=== PATIENT | female | born 1965 | race African-American/Black ===

== ENCOUNTER 2021-09-12 10:04 | Inpatient (IN) | payer BC ==
[~2021-09-12] VITALS: Ht 180.3 cm; Wt 101.6 kg
[~2021-09-12 10:04] MED LIST: HYDR-3164 PO
[2021-09-12] MEDS ORDERED: IV NORMAL SALINE 1000ML BAG 1,000 ML IV ONE (10:30)
[2021-09-12 11:01] LABS: BASO # 0.1 x10^3/uL (0.0-0.2); BASO % 1 % (0-3); EOS # 0.1 x10^3/uL (0.0-0.7); EOS % 1 % (0-3); HEMATOCRIT 31.3 % (36.0-47.0); HEMOGLOBIN 10.2 g/dL (12.0-15.5); LYMPH # 2.8 x10^3/uL (1.0-4.8); LYMPH % 22 % (24-48); MEAN CORPUSCULAR HEMOGLOBIN 32 pg (25-35); MEAN CORPUSCULAR HGB CONC 33 g/dL (31-37); MEAN CORPUSCULAR VOLUME 96 fL (79-100); MONO # 0.8 x10^3/uL (0.0-1.1); MONO % 7 % (0-9); NEUT # 8.7 x10^3/uL (1.8-7.7); NEUT % 70 % (31-73); PLATELET COUNT 365 x10^3/uL (140-400); RED BLOOD COUNT 3.24 x10^6/uL (3.50-5.40); RED CELL DISTRIBUTION WIDTH 13.1 % (11.5-14.5); WHITE BLOOD COUNT 12.4 x10^3/uL (4.0-11.0)
[2021-09-12 11:09] LABS: CALCIUM 8.8 mg/dL (8.5-10.1); CREATININE 0.9 mg/dL (0.6-1.0); GFR 77.8; POTASSIUM 4.7 mmol/L (3.5-5.1)
[2021-09-12 11:15] LABS: ALBUMIN 2.7 g/dL (3.4-5.0); ALBUMIN/GLOBULIN RATIO 0.8 (1.0-1.7); TOTAL BILIRUBIN 0.4 mg/dL (0.2-1.0); TOTAL PROTEIN 6.3 g/dL (6.4-8.2)
[2021-09-12 11:16] LABS: PROTHROMBIN TIME PATIENT 15.4 SEC (11.7-14.0)
[2021-09-12] MEDS ORDERED: IOHEXOL 350 MG/ML 100 ML VIAL. IV ONE (11:30)
[2021-09-12] MEDS ORDERED: CONTRAST GIVEN. MC PRN (11:30)
--- NOTE | 2021-09-12 12:16 | RAD ---
PQRS Compliance Statement: One or more of the following individualized dose reduction techniques were utilized for this examinat ion: 1. Automated exposure control 2. Adjustment of the mA and/or kV according to patient size 3. Use of iterative reconstruction technique Exam performed: CT angiogram abdomen and pelvis without and with contrast HISTORY: GI bleed. DATE OF SERVICE: 09/12/2021. COMPARISON: None available TECHNIQUE: Contiguous helical acquisitions are obtained through the abdomen and pelvis without IV con trast. Patient is then injected with 90 cc of Omnipaque 350 sagittal and coronal MIP images are obtai gia and reviewed. FINDINGS: Vascular findings: The aorta is normal in caliber without aneurysm. Normal origins of the celiac axis, superior mesenter ic, single bilateral renal and inferior mesenteric arteries is seen. Normal aortic bifurcation is seen into bilateral common iliac arteries which bifurcate into internal and external iliac artery. No evidence of aneurysm or dissection seen. No contrast extravasation is i dentified. The delayed images demonstrate no evidence of delayed hemorrhage. Nonvascular findings: The noncontrast enhanced images demonstrate no abnormal calcification. Postoperative changes are seen in the stomach. There are surgical sutures in relation to the small bowel in the left mid to lower a bdomen. Pelvic phleboliths. The liver, spleen, pancreas appear normal. Gallbladder is distended. Both adrenal glands and bilatera l kidneys are normal in size with symmetric excretion of contrast via both kidneys. No hydronephrosis or nephrolithiasis seen. Small and large bowel loops are nondilated and unremarkable. The urinary bl adder is partially decompressed. Probable hysterectomy. No adnexal masses seen. There are spondylotic changes involving the lumbar spine with degenerative disc disease at L2-3 level. IMPRESSION: No definite vascular abnormality seen. No evidence of aneurysm, dissection of contrast extravasation seen. No acute intra-abdominal or pelvic process seen. Degenerative disc disease L2/3 level. Electronically signed by: Mariah Lyon MD (09/12/2021 12:13 PM) [facility]
[2021-09-12 12:32] LABS: HYALINE CASTS, URINE OCCASIONAL /HPF
[2021-09-12 12:33] LABS: BACTERIA,URINE 0 /HPF (0-FEW); RBC,URINE 0 /HPF (0-2)
--- NOTE | 2021-09-12 13:08 | PHYS DOC ---
Past Medical History Past Medical History: Cancer, Hypertension, Other Additional Past Medical Histor: cancer(dfsb,2004) Past Surgical History: No Surgical History Additional Past Surgical Histo: scar tissue removal Smoking Status: Never Smoker Alcohol Use: None Drug Use: None General Adult EDM: Chief Complaint: GI PROBLEM HPI: HPI: Patient is a 56 year old female who presents with periumbilical abdominal pain with 3 large bloody bowel movements this morning. Patient was seen last week in the urgent care, she had a white count of 13.9 and hemoglobin of 14 at that time. She was given antibiotics for some sort of infection according to the patient, also her D-dimer was elevated, she had a CT angio of the chest which did not reveal a pulmonary embolus. She did not have imaging of her abdomen. She presents today hemodynamically stable, however she states that she is symptomatic. She states that she is lightheaded, she feels a bit short of breath, and she feels fatigued very quickly. Otherwise she is doing well. Review of Systems: Review of Systems: Constitutional: Denies fever or chills. [] Eyes: Denies change in visual acuity. [] HENT: Denies nasal congestion or sore throat. [] Respiratory: Denies cough or shortness of breath. [] Cardiovascular: Denies chest pain or edema. [] GI: Positive abdominal pain, no nausea, vomiting, positive bloody stools no constipation or diarrhea. [] : Denies dysuria. [] Musculoskeletal: Denies back pain or joint pain. [] Integument: Denies rash. [] Neurologic: Denies headache, focal weakness or sensory changes. [] Endocrine: Denies polyuria or polydipsia. [] Lymphatic: Denies swollen glands. [] Psychiatric: Denies depression or anxiety. [] Heart Score: C/O Chest Pain: No Risk Factors: Risk Factors: DM, Current or recent (<one month) smoker, HTN, HLP, family history of CAD, obesity. Risk Scores: Score 0 - 3: 2.5% MACE over next 6 weeks - Discharge Home Score 4 - 6: 20.3% MACE over next 6 weeks - Admit for Clinical Observation Score 7 - 10: 72.7% MACE over next 6 weeks - Early Invasive Strategies Current Medications: Current Medications Medications (Trade) Dose Ordered Sig/Ratna Start Time Stop Time Status Last Admin Dose Admin Info (CONTRAST GIVEN -- Rx MONITORING) 1 each PRN DAILY PRN 09/12/21 11:30 09/14/21 11:29 Iohexol (Omnipaque 350 Mg/ml) 100 ml 1X ONCE 09/12/21 11:30 09/12/21 11:31 DC 09/12/21 11:34 100 ML Pantoprazole Sodium 80 mg/ Sodium Chloride 100 ml @ 10 mls/hr Q10H 09/12/21 13:00 Sodium Chloride 1,000 ml @ 1,000 mls/hr 1X ONCE 09/12/21 10:30 09/12/21 11:29 DC 09/12/21 10:55 1,000 MLS/HR Allergies: Allergies: Allergies Coded Allergies Type Severity Reaction Last Updated Verified No Known Drug Allergies 06/05/13 No Physical Exam: PE: Constitutional: Well developed, well nourished, no acute distress, non-toxic appearance. [] HENT: Normocephalic, atraumatic, bilateral external ears normal, oropharynx mois t, no oral exudates, nose normal. [] Eyes: PERRLA, EOMI, conjunctiva normal, no discharge. [] Neck: Normal range of motion, no tenderness, supple, no stridor. [] Cardiovascular:Heart rate regular rhythm, no murmur [] Lungs & Thorax: Bilateral breath sounds clear to auscultation [] Abdomen: Bowel sounds normal, soft, minimal epigastric and periumbilical tenderness, no masses, no pulsatile masses. [] Skin: Warm, dry, no erythema, no rash. [] Back: No tenderness, no CVA tenderness. [] Extremities: No tenderness, no cyanosis, no clubbing, ROM intact, no edema. [] Neurologic: Alert and oriented X 3, normal motor function, normal sensory function, no focal deficits noted. [] Psychologic: Affect normal, judgement normal, mood normal. [] Current Patient Data: Labs: Laboratory Tests Test 09/12/21 10:40 09/12/21 11:45 White Blood Count 12.4 x10^3/uL (4.0-11.0) H Red Blood Count 3.24 x10^6/uL (3.50-5.40) L Hemoglobin 10.2 g/dL (12.0-15.5) L Hematocrit 31.3 % (36.0-47.0) L Mean Corpuscular Volume 96 fL (79-100) Mean Corpuscular Hemoglobin 32 pg (25-35) Mean Corpuscular Hemoglobin Concent 33 g/dL (31-37) Red Cell Distribution Width 13.1 % (11.5-14.5) Platelet Count 365 x10^3/uL (140-400) Neutrophils (%) (Auto) 70 % (31-73) Lymphocytes (%) (Auto) 22 % (24-48) L Monocytes (%) (Auto) 7 % (0-9) Eosinophils (%) (Auto) 1 % (0-3) Basophils (%) (Auto) 1 % (0-3) Neutrophils # (Auto) 8.7 x10^3/uL (1.8-7.7) H Lymphocytes # (Auto) 2.8 x10^3/uL (1.0-4.8) Monocytes # (Auto) 0.8 x10^3/uL (0.0-1.1) Eosinophils # (Auto) 0.1 x10^3/uL (0.0-0.7) Basophils # (Auto) 0.1 x10^3/uL (0.0-0.2) Prothrombin Time 15.4 SEC (11.7-14.0) H Prothrombin Time INR 1.3 (0.8-1.1) H Activated Partial Thromboplast Time 35 SEC (24-38) Sodium Level 140 mmol/L (136-145) Potassium Level 4.7 mmol/L (3.5-5.1) Chloride Level 105 mmol/L (98-107) Carbon Dioxide Level 26 mmol/L (21-32) Anion Gap 9 (6-14) Blood Urea Nitrogen 24 mg/dL (7-20) H Creatinine 0.9 mg/dL (0.6-1.0) Estimated GFR (Cockcroft-Gault) 77.8 BUN/Creatinine Ratio 27 (6-20) H Glucose Level 119 mg/dL (70-99) H Lactic Acid Level 1.7 mmol/L (0.4-2.0) Calcium Level 8.8 mg/dL (8.5-10.1) Total Bilirubin 0.4 mg/dL (0.2-1.0) Aspartate Amino Transferase (AST) 29 U/L (15-37) Alanine Aminotransferase (ALT) 37 U/L (14-59) Alkaline Phosphatase 129 U/L (46-116) H Total Protein 6.3 g/dL (6.4-8.2) L Albumin 2.7 g/dL (3.4-5.0) L Albumin/Globulin Ratio 0.8 (1.0-1.7) L Urine Collection Type Unknown Urine Color (Auto) Light yellow Urine Turbidity Clear Urine pH (Auto) 6.5 (<5.0-8.0) Urine Specific War 1.043 (1.000-1.030) Urine Protein (Auto) Negative mg/dL (Negative) Urine Glucose (Auto)(UA) Negative mg/dL (Negative) Urine Ketones (Auto) Negative mg/dL (Negative) Urine Blood (Auto) Small (Negative) Urine Nitrite (Auto) Negative (Negative) Urine Bilirubin (Auto) Negative (Negative) Urine Urobilinogen (Auto) Normal mg/dL (Normal) Urine Leukocyte Esterase (Auto) Negative (Negative) Urine RBC 0 /HPF (0-2) Urine WBC 1-4 /HPF (0-4) Urine Squamous Epithelial Cells Few /LPF Urine Bacteria 0 /HPF (0-FEW) Urine Hyaline Casts Occasional /HPF Urine Mucus Mod /LPF Laboratory Tests 09/12/21 10:40 Laboratory Tests 09/12/21 10:40 Vital Signs: Vital Signs Date Time Temp Pulse Resp B/P (MAP) Pulse Ox O2 Delivery O2 Flow Rate FiO2 09/12/21 12:40 89 20 110/74 (86) 98 Room Air 09/12/21 10:21 97.7 97.7 EKG: EKG: [] Radiology/Procedures: Radiology/Procedures: CT scan no acute intra-abdominal process Impression: 56-year-old female with acute GI bleed. Hemoglobin dropped from 14 to 10.2 Course & Med Decision Making: Course & Med Decision Making Pertinent Labs and Imaging studies reviewed. (See chart for details) 56-year-old female with acute blood loss anemia secondary to GI bleed. I spoke to gastroenterology on-call who requested a PPI drip and admission for further monitoring, they will be in consultation. Spoke to hospitalist, Dr. Barragan, who accepts the patient for admission. Patient is currently stable, hemodynamically stable, patient will be admitted for further monitoring. Dragon Disclaimer: Dragon Disclaimer: This electronic medical record was generated, in whole or in part, using a voice recognition dictation system. Departure Departure Referrals: SHARON WILHELM Jr, MD (PCP) CARMEN DAVIS MD Sep 12, 2021 13:08
[2021-09-12] MEDS: PANTOPRAZOLE SODIUM IV DRIP 80 MG in IV NORMAL SALINE 100ML 100 ML IV SCH ×2 (13:23→23:13)
--- NOTE | 2021-09-12 14:10 | NUR ---
Received patient from ED by bed, stable, with ongoing Pantoprazole drip at ordered rate. 1500h, patient ambulated to bathroom, stable gait noted 1600h- Dr. Gordon, GI doctor called, told that she'll see patient annie, patient may have clear liquid diet for now until seen.
[2021-09-12 14:20] VITALS: BP 99/66
[2021-09-12] MEDS ORDERED: ZOLPIDEM 5 MG TABLET. PO PRN (15:15)
[2021-09-12] MEDS ORDERED: LORazepam 0.5 MG TABLET PO PRN (15:15)
[2021-09-12] MEDS ORDERED: SENNOSIDES 8.6 MG TABLET PO PRN (15:15)
[2021-09-12] MEDS ORDERED: DEXTROSE 50% 25 GM / 50ML DISP.SYRIN. IV PRN (15:15)
[2021-09-12] MEDS ORDERED: DOCUSATE SODIUM 100 MG CAPSULE. PO PRN (15:15)
[2021-09-12] MEDS ORDERED: diphenhydrAMINE HCL 25 MG CAPSULE PO PRN ×2 (15:15)
[2021-09-12] MEDS ORDERED: diphenhydrAMINE 50 MG/ML VIAL IVP PRN (15:15)
[2021-09-12] MEDS ORDERED: PROCHLORPERAZINE 10 MG/2 ML VIAL. IV PRN (15:15)
--- NOTE | 2021-09-12 15:19 | PDOC1 ---
History and Physical Date of Service: DOS: DATE: 09/12/21 TIME: 15:06 Chief Complaint: Chief Complain: Lower GI bleed History of Present Illness: HPI: 56-year-old female who presents with 3 large bloody bowel movements this morning. She does have a history of hemorrhoids. She was seen last week at an urgent care where her hemoglobin was 14 at the time. She was given antibiotics for what sounds like a UTI. She also was evaluated by her PCP in which her D- dimer was elevated and she underwent a CT angio of the chest which was negative for pulmonary embolus. She does endorse some suprapubic pain and some shortness of breath. Positive for fatigue as well. Denies any chest pain, fevers, nausea or vomiting, dysuria or syncope. No palpitations. Past Medical/Surgical History: PMH/PSH: Past Medical History: Hypertension, dermatofibrosarcoma 2005 Past Surgical History: TAHBSO in 2018, [place]-en-Y gastric bypass in 2019, colonoscopy more than 10 years ago Allergies: Allergies: Coded Allergies: No Known Drug Allergies (Unverified , 06/05/13) Family History: Family History: Reviewed with no relative findings in the chart Social History: Social History: Smoking Status: Never Smoker Alcohol Use: None Drug Use: None Current Medications: Current Medications Current Medications Sodium Chloride 1,000 ml @ 1,000 mls/hr 1X ONCE IV Last administered on 09/12/21at 10:55; Start 09/12/21 at 10:30; Stop 09/12/21 at 11:29; Status DC Iohexol (Omnipaque 350 Mg/ml) 100 ml 1X ONCE IV Last administered on 09/12/21at 11:34; Start 09/12/21 at 11:30; Stop 09/12/21 at 11:31; Status DC Info (CONTRAST GIVEN -- Rx MONITORING) 1 each PRN DAILY PRN MC SEE COMMENTS; Start 09/12/21 at 11:30; Stop 09/14/21 at 11:29 Pantoprazole Sodium 80 mg/ Sodium Chloride 100 ml @ 10 mls/hr Q10H IV Last administered on 09/12/21at 13:23; Start 09/12/21 at 13:00 Active Scripts Active [place] 5-325 Tablet (Hydrocodone Bit/Acetaminophen) 1 Each Tablet 1 Each PO Q4HRS PRN ROS: Review of Systems Review of System REVIEW OF SYSTEMS: GENERAL: Denies weakness SKIN: No bruising, hair changes or rashes. EYES: No blurred, double or loss of vision. NOSE AND THROAT: No history of nosebleeds, hoarseness or sore throat. HEART: No history of palpitations, chest pain or shortness of breath on exertion. LUNGS: Denies cough, hemoptysis, wheezing or shortness of breath. GASTROINTESTINAL: Bloody bowel movements GENITOURINARY: No history of frequency, urgency, hesitancy or nocturia. NEUROLOGIC: Denies history of numbness, tingling, or tremor. PSYCHIATRIC: No history of panic, anxiety or depression. ENDOCRINE: No history of heat or cold intolerance, polyuria or polydipsia. EXTREMITIES: Denies joint pain, pain on walking or stiffness. Physical Exam: Vital Signs: Vital Signs Date Time Temp Pulse Resp B/P (MAP) Pulse Ox O2 Delivery O2 Flow Rate FiO2 09/12/21 14:20 98.1 61 19 99/66 (77) 98 Room Air 98.1 Physcial Exam: General: Well developed, well nourished, no acute distress, well appearing HEENT: Pupils equally round and reactive to light, EOMI, no discharge, normal conjunctiva Neck: Supple, no nuchal rigidity, no JVD, trachea midline, no tenderness Cardiac: RRR, no murmurs, no gallops, no rubs Chest/Lungs: CTAB, no wheeze, no rhonchi, no crackles Abdomen: soft, non-distended, no guarding, no peritoneal signs, mildly tender on palpation of the lower abdominal area Back: No tenderness Extremities: no edema, pulses intact, non-tender,capillary refill <3 sec bilateral upper and lower extremities, Neuro: Alert and oriented x 4, no focal deficits, normal speech Labs: Labs: Laboratory Tests Test 09/12/21 10:40 09/12/21 11:45 White Blood Count 12.4 x10^3/uL (4.0-11.0) Red Blood Count 3.24 x10^6/uL (3.50-5.40) Hemoglobin 10.2 g/dL (12.0-15.5) Hematocrit 31.3 % (36.0-47.0) Mean Corpuscular Volume 96 fL (79-100) Mean Corpuscular Hemoglobin 32 pg (25-35) Mean Corpuscular Hemoglobin Concent 33 g/dL (31-37) Red Cell Distribution Width 13.1 % (11.5-14.5) Platelet Count 365 x10^3/uL (140-400) Neutrophils (%) (Auto) 70 % (31-73) Lymphocytes (%) (Auto) 22 % (24-48) Monocytes (%) (Auto) 7 % (0-9) Eosinophils (%) (Auto) 1 % (0-3) Basophils (%) (Auto) 1 % (0-3) Neutrophils # (Auto) 8.7 x10^3/uL (1.8-7.7) Lymphocytes # (Auto) 2.8 x10^3/uL (1.0-4.8) Monocytes # (Auto) 0.8 x10^3/uL (0.0-1.1) Eosinophils # (Auto) 0.1 x10^3/uL (0.0-0.7) Basophils # (Auto) 0.1 x10^3/uL (0.0-0.2) Prothrombin Time 15.4 SEC (11.7-14.0) Prothromb Time International Ratio 1.3 (0.8-1.1) Activated Partial Thromboplast Time 35 SEC (24-38) Sodium Level 140 mmol/L (136-145) Potassium Level 4.7 mmol/L (3.5-5.1) Chloride Level 105 mmol/L (98-107) Carbon Dioxide Level 26 mmol/L (21-32) Anion Gap 9 (6-14) Blood Urea Nitrogen 24 mg/dL (7-20) Creatinine 0.9 mg/dL (0.6-1.0) Estimated GFR (Cockcroft-Gault) 77.8 BUN/Creatinine Ratio 27 (6-20) Glucose Level 119 mg/dL (70-99) Lactic Acid Level 1.7 mmol/L (0.4-2.0) Calcium Level 8.8 mg/dL (8.5-10.1) Total Bilirubin 0.4 mg/dL (0.2-1.0) Aspartate Amino Transf (AST/SGOT) 29 U/L (15-37) Alanine Aminotransferase (ALT/SGPT) 37 U/L (14-59) Alkaline Phosphatase 129 U/L (46-116) Total Protein 6.3 g/dL (6.4-8.2) Albumin 2.7 g/dL (3.4-5.0) Albumin/Globulin Ratio 0.8 (1.0-1.7) Urine Collection Type Unknown Urine Color (Auto) Light yellow Urine Turbidity Clear Urine pH (Auto) 6.5 (<5.0-8.0) Urine Specific Diagonal 1.043 (1.000-1.030) Urine Protein (Auto) Negative mg/dL (Negative) Urine Glucose (Auto)(UA) Negative mg/dL (Negative) Urine Ketones (Auto) Negative mg/dL (Negative) Urine Blood (Auto) Small (Negative) Urine Nitrite (Auto) Negative (Negative) Urine Bilirubin (Auto) Negative (Negative) Urine Urobilinogen (Auto) Normal mg/dL (Normal) Urine Leukocyte Esterase (Auto) Negative (Negative) Urine RBC 0 /HPF (0-2) Urine WBC 1-4 /HPF (0-4) Urine Squamous Epithelial Cells Few /LPF Urine Bacteria 0 /HPF (0-FEW) Urine Hyaline Casts Occasional /HPF Urine Mucus Mod /LPF Laboratory Tests Test 09/12/21 10:40 09/12/21 11:45 White Blood Count 12.4 x10^3/uL (4.0-11.0) Red Blood Count 3.24 x10^6/uL (3.50-5.40) Hemoglobin 10.2 g/dL (12.0-15.5) Hematocrit 31.3 % (36.0-47.0) Mean Corpuscular Volume 96 fL (79-100) Mean Corpuscular Hemoglobin 32 pg (25-35) Mean Corpuscular Hemoglobin Concent 33 g/dL (31-37) Red Cell Distribution Width 13.1 % (11.5-14.5) Platelet Count 365 x10^3/uL (140-400) Neutrophils (%) (Auto) 70 % (31-73) Lymphocytes (%) (Auto) 22 % (24-48) Monocytes (%) (Auto) 7 % (0-9) Eosinophils (%) (Auto) 1 % (0-3) Basophils (%) (Auto) 1 % (0-3) Neutrophils # (Auto) 8.7 x10^3/uL (1.8-7.7) Lymphocytes # (Auto) 2.8 x10^3/uL (1.0-4.8) Monocytes # (Auto) 0.8 x10^3/uL (0.0-1.1) Eosinophils # (Auto) 0.1 x10^3/uL (0.0-0.7) Basophils # (Auto) 0.1 x10^3/uL (0.0-0.2) Prothrombin Time 15.4 SEC (11.7-14.0) Prothromb Time International Ratio 1.3 (0.8-1.1) Activated Partial Thromboplast Time 35 SEC (24-38) Sodium Level 140 mmol/L (136-145) Potassium Level 4.7 mmol/L (3.5-5.1) Chloride Level 105 mmol/L (98-107) Carbon Dioxide Level 26 mmol/L (21-32) Anion Gap 9 (6-14) Blood Urea Nitrogen 24 mg/dL (7-20) Creatinine 0.9 mg/dL (0.6-1.0) Estimated GFR (Cockcroft-Gault) 77.8 BUN/Creatinine Ratio 27 (6-20) Glucose Level 119 mg/dL (70-99) Lactic Acid Level 1.7 mmol/L (0.4-2.0) Calcium Level 8.8 mg/dL (8.5-10.1) Total Bilirubin 0.4 mg/dL (0.2-1.0) Aspartate Amino Transf (AST/SGOT) 29 U/L (15-37) Alanine Aminotransferase (ALT/SGPT) 37 U/L (14-59) Alkaline Phosphatase 129 U/L (46-116) Total Protein 6.3 g/dL (6.4-8.2) Albumin 2.7 g/dL (3.4-5.0) Albumin/Globulin Ratio 0.8 (1.0-1.7) Urine Collection Type Unknown Urine Color (Auto) Light yellow Urine Turbidity Clear Urine pH (Auto) 6.5 (<5.0-8.0) Urine Specific Diagonal 1.043 (1.000-1.030) Urine Protein (Auto) Negative mg/dL (Negative) Urine Glucose (Auto)(UA) Negative mg/dL (Negative) Urine Ketones (Auto) Negative mg/dL (Negative) Urine Blood (Auto) Small (Negative) Urine Nitrite (Auto) Negative (Negative) Urine Bilirubin (Auto) Negative (Negative) Urine Urobilinogen (Auto) Normal mg/dL (Normal) Urine Leukocyte Esterase (Auto) Negative (Negative) Urine RBC 0 /HPF (0-2) Urine WBC 1-4 /HPF (0-4) Urine Squamous Epithelial Cells Few /LPF Urine Bacteria 0 /HPF (0-FEW) Urine Hyaline Casts Occasional /HPF Urine Mucus Mod /LPF Images: Images PROCEDURE: CT ANGIOGRAPHY ABD AND PELVIS PQRS Compliance Statement: One or more of the following individualized dose reduction techniques were utilized for this examination: 1. Automated exposure control 2. Adjustment of the mA and/or kV according to patient size 3. Use of iterative reconstruction technique Exam performed: CT angiogram abdomen and pelvis without and with contrast HISTORY: GI bleed. DATE OF SERVICE: 09/12/2021. COMPARISON: None available TECHNIQUE: Contiguous helical acquisitions are obtained through the abdomen and pelvis without IV contrast. Patient is then injected with 90 cc of Omnipaque 350 sagittal and coronal MIP images are obtained and reviewed. FINDINGS: Vascular findings: The aorta is normal in caliber without aneurysm. Normal origins of the celiac axis, superior mesenteric, single bilateral renal and inferior mesenteric arteries is seen. Normal aortic bifurcation is seen into bilateral common iliac arteries which bifurcate into internal and external iliac artery. No evidence of aneurysm or dissection seen. No contrast extravasation is identified. The delayed images demonstrate no evidence of delayed hemorrhage. Nonvascular findings: The noncontrast enhanced images demonstrate no abnormal calcification. Postoperative changes are seen in the stomach. There are surgical sutures in relation to the small bowel in the left mid to lower abdomen. Pelvic phleboliths. The liver, spleen, pancreas appear normal. Gallbladder is distended. Both adrenal glands and bilateral kidneys are normal in size with symmetric excretion of contrast via both kidneys. No hydronephrosis or nephrolithiasis seen. Small and large bowel loops are nondilated and unremarkable. The urinary bladder is partially decompressed. Probable hysterectomy. No adnexal masses seen. There are spondylotic changes involving the lumbar spine with degenerative disc disease at L2-3 level. IMPRESSION: No definite vascular abnormality seen. No evidence of aneurysm, dissection of contrast extravasation seen. No acute intra-abdominal or pelvic process seen. Degenerative disc disease L2/3 level. Assessment/Plan Assessment/Plan Acute lower GIB Anemia secondary to acute blood loss Prerenal azotemia History of gastric bypass History of colonic polyps History of dermatofibrosarcoma Admit to hospitalist service for further management GI consult Continue PPI drip Trend hemoglobin Strict I's/O and monitor urine output Continue IV fluids Pending B12 levels SCD and ambulation for DVT prophylaxis PPI GI prophylaxis ADA diet CODE STATUS full Discussed with RN and SW Disposition inpatient management as above DPOA: Justifications for Admission Other Justification SANJEEV FELIPE MD Sep 12, 2021 15:19
[2021-09-12] MEDS: IV NORMAL SALINE 1000ML BAG 1,000 ML IV SCH ×2 (15:26→23:14)
[2021-09-12] MEDS ORDERED: CALC-313 PO (16:14)
[2021-09-12] MEDS ORDERED: MULT1CAP33 PO (16:14)
[2021-09-12] MEDS ORDERED: CIPR250T PO (16:14)
[2021-09-12 19:00] VITALS: BP 96/57
[2021-09-13] VITALS (11 sets, daily range): BP systolic 98–120; BP diastolic 48–78
[2021-09-13 07:38] LABS: BASO % 1 % (0-3); EOS # 0.1 x10^3/uL (0.0-0.7); EOS % 2 % (0-3); HEMATOCRIT 20.1 % (36.0-47.0); LYMPH # 2.2 x10^3/uL (1.0-4.8); LYMPH % 31 % (24-48); MEAN CORPUSCULAR HEMOGLOBIN 32 pg (25-35); MEAN CORPUSCULAR HGB CONC 34 g/dL (31-37); MEAN CORPUSCULAR VOLUME 95 fL (79-100); MONO # 0.4 x10^3/uL (0.0-1.1); MONO % 6 % (0-9); NEUT # 4.3 x10^3/uL (1.8-7.7); NEUT % 61 % (31-73); PLATELET COUNT 300 x10^3/uL (140-400); RED BLOOD COUNT 2.11 x10^6/uL (3.50-5.40); RED CELL DISTRIBUTION WIDTH 12.9 % (11.5-14.5); WHITE BLOOD COUNT 7.1 x10^3/uL (4.0-11.0)
[2021-09-13 07:42] LABS: HEMOGLOBIN 6.8 g/dL (12.0-15.5)
[2021-09-13 07:52] LABS: CALCIUM 8.1 mg/dL (8.5-10.1); CREATININE 0.9 mg/dL (0.6-1.0); GFR 77.8; MAGNESIUM 2.1 mg/dL (1.8-2.4); PHOSPHORUS 4.1 mg/dL (2.6-4.7); POTASSIUM 4.1 mmol/L (3.5-5.1)
[2021-09-13 08:07] LABS: BACTERIA,URINE 0 /HPF (0-FEW); RBC,URINE 0 /HPF (0-2); WBC,URINE 0 /HPF (0-4)
[2021-09-13] MEDS: PANTOPRAZOLE SODIUM IV DRIP 80 MG in IV NORMAL SALINE 100ML 100 ML IV SCH ×2 (09:47→23:02)
[2021-09-13] MEDS: ONDANSETRON PF 4 MG/2 ML VIAL. IVP PRN ×2 (09:52→19:42)
--- NOTE | 2021-09-13 10:41 | PDOC2 ---
GI CONSULT Reason For Consult: anemia/hematochezia HPI: HPI: 56 year old female with PMH RYGB with came in yesterday with 3 large bloody bowel movements. She does have a history of hemorrhoids. She was seen at an urgent care on and was told to come to the ER. She was seen by her PCP on Tuesday and treated for a UTI with antibiotics. Her Hgb was 14 at that times ON Admit, Hgb was 10. CT A/P was unremarkable. Hgb was 6.8 this am, and she reports feeling like there is needles in her abdomen. She admit sto taking multiple Ibuprofen and tylenol for the pain from her UTI and a headache. She also was evaluated by her PCP in which her D-dimer was elevated and she underwent a CT angio of the chest which was negative for pulmonary embolus. She does endorse some suprapubic pain and some shortness of breath. She states that she had an EGD on college that was unremarkble and had a colonoscopy 10 years ago that demonstrated polyps. She denies history of diverticulosis PMH: PMH: Past Medical/Surgical History: PMH/PSH: Past Medical History: Hypertension, dermatofibrosarcoma 2005 Past Surgical History: TAHBSO in 2018, Ever[place]-en-Y gastric bypass in 2019, colonoscopy more than 10 years ago Allergies: Allergies: Coded Allergies: No Known Drug Allergies (Unverified , 06/05/13) Family History: Family History: Reviewed with no relative findings in the chart Social History: Social History: Smoking Status: Never Smoker Alcohol Use: None Drug Use: None Current Medications: Current Medications Current Medications Sodium Chloride 1,000 ml @ 1,000 mls/hr 1X ONCE IV Last administered on 09/12/21at 10:55; Start 09/12/21 at 10:30; Stop 09/12/21 at 11:29; Status DC Iohexol (Omnipaque 350 Mg/ml) 100 ml 1X ONCE IV Last administered on 09/12/21at 11:34; Start 09/12/21 at 11:30; Stop 09/12/21 at 11:31; Status DC Info (CONTRAST GIVEN -- Rx MONITORING) 1 each PRN DAILY PRN MC SEE COMMENTS; Start 09/12/21 at 11:30; Stop 09/14/21 at 11:29 Pantoprazole Sodium 80 mg/ Sodium Chloride 100 ml @ 10 mls/hr Q10H IV Last administered on 09/12/21at 13:23; Start 09/12/21 at 13:00 Active Scripts Active [place] 5-325 Tablet (Hydrocodone Bit/Acetaminophen) 1 Each Tablet 1 Each PO Q4HRS PRN FH: Family History: Cancer (Colon cancer in an uncle) Social History: Smoke: No ALCOHOL: none Drugs: None ROS: GENERAL: Denies weakness SKIN: No bruising, hair changes or rashes. EYES: No blurred, double or loss of vision. NOSE AND THROAT: No history of nosebleeds, hoarseness or sore throat. HEART: No history of palpitations, chest pain or shortness of breath on exertion. LUNGS: Denies cough, hemoptysis, wheezing or shortness of breath. NEUROLOGIC: Denies history of numbness, tingling, or tremor. PSYCHIATRIC: No history of panic, anxiety or depression. ENDOCRINE: No history of heat or cold intolerance, polyuria or polydipsia. EXTREMITIES: Denies joint pain, pain on walking or stiffness. VItals: Vitals: Vital Signs Date Time Temp Pulse Resp B/P (MAP) Pulse Ox O2 Delivery O2 Flow Rate FiO2 09/13/21 08:00 Room Air 09/13/21 07:00 98.4 78 16 100/62 (75) 98 98.4 Labs: Labs: Laboratory Tests Test 09/12/21 10:40 09/12/21 11:45 09/13/21 04:53 09/13/21 06:10 White Blood Count 12.4 x10^3/uL (4.0-11.0) 7.1 x10^3/uL (4.0-11.0) Red Blood Count 3.24 x10^6/uL (3.50-5.40) 2.11 x10^6/uL (3.50-5.40) Hemoglobin 10.2 g/dL (12.0-15.5) 6.8 g/dL (12.0-15.5) Hematocrit 31.3 % (36.0-47.0) 20.1 % (36.0-47.0) Mean Corpuscular Volume 96 fL (79-100) 95 fL (79-100) Mean Corpuscular Hemoglobin 32 pg (25-35) 32 pg (25-35) Mean Corpuscular Hemoglobin Concent 33 g/dL (31-37) 34 g/dL (31-37) Red Cell Distribution Width 13.1 % (11.5-14.5) 12.9 % (11.5-14.5) Platelet Count 365 x10^3/uL (140-400) 300 x10^3/uL (140-400) Neutrophils (%) (Auto) 70 % (31-73) 61 % (31-73) Lymphocytes (%) (Auto) 22 % (24-48) 31 % (24-48) Monocytes (%) (Auto) 7 % (0-9) 6 % (0-9) Eosinophils (%) (Auto) 1 % (0-3) 2 % (0-3) Basophils (%) (Auto) 1 % (0-3) 1 % (0-3) Neutrophils # (Auto) 8.7 x10^3/uL (1.8-7.7) 4.3 x10^3/uL (1.8-7.7) Lymphocytes # (Auto) 2.8 x10^3/uL (1.0-4.8) 2.2 x10^3/uL (1.0-4.8) Monocytes # (Auto) 0.8 x10^3/uL (0.0-1.1) 0.4 x10^3/uL (0.0-1.1) Eosinophils # (Auto) 0.1 x10^3/uL (0.0-0.7) 0.1 x10^3/uL (0.0-0.7) Basophils # (Auto) 0.1 x10^3/uL (0.0-0.2) 0.0 x10^3/uL (0.0-0.2) Prothrombin Time 15.4 SEC (11.7-14.0) Prothromb Time International Ratio 1.3 (0.8-1.1) Activated Partial Thromboplast Time 35 SEC (24-38) Sodium Level 140 mmol/L (136-145) 143 mmol/L (136-145) Potassium Level 4.7 mmol/L (3.5-5.1) 4.1 mmol/L (3.5-5.1) Chloride Level 105 mmol/L (98-107) 109 mmol/L (98-107) Carbon Dioxide Level 26 mmol/L (21-32) 28 mmol/L (21-32) Anion Gap 9 (6-14) 6 (6-14) Blood Urea Nitrogen 24 mg/dL (7-20) 13 mg/dL (7-20) Creatinine 0.9 mg/dL (0.6-1.0) 0.9 mg/dL (0.6-1.0) Estimated GFR (Cockcroft-Gault) 77.8 77.8 BUN/Creatinine Ratio 27 (6-20) Glucose Level 119 mg/dL (70-99) 86 mg/dL (70-99) Lactic Acid Level 1.7 mmol/L (0.4-2.0) Calcium Level 8.8 mg/dL (8.5-10.1) 8.1 mg/dL (8.5-10.1) Total Bilirubin 0.4 mg/dL (0.2-1.0) Aspartate Amino Transf (AST/SGOT) 29 U/L (15-37) Alanine Aminotransferase (ALT/SGPT) 37 U/L (14-59) Alkaline Phosphatase 129 U/L (46-116) Total Protein 6.3 g/dL (6.4-8.2) Albumin 2.7 g/dL (3.4-5.0) Albumin/Globulin Ratio 0.8 (1.0-1.7) Urine Collection Type Unknown Unknown Urine Color (Auto) Light yellow Colorless Urine Turbidity Clear Clear Urine pH (Auto) 6.5 (<5.0-8.0) 5.0 (<5.0-8.0) Urine Specific [place] 1.043 (1.000-1.030) 1.007 (1.000-1.030) Urine Protein (Auto) Negative mg/dL (Negative) Negative mg/dL (Negative) Urine Glucose (Auto)(UA) Negative mg/dL (Negative) Negative mg/dL (Negative) Urine Ketones (Auto) Negative mg/dL (Negative) Negative mg/dL (Negative) Urine Blood (Auto) Small (Negative) Negative (Negative) Urine Nitrite (Auto) Negative (Negative) Urine Bilirubin (Auto) Negative (Negative) Negative (Negative) Urine Urobilinogen (Auto) Normal mg/dL (Normal) Normal mg/dL (Normal) Urine Leukocyte Esterase (Auto) Negative (Negative) Negative (Negative) Urine RBC 0 /HPF (0-2) 0 /HPF (0-2) Urine WBC 1-4 /HPF (0-4) 0 /HPF (0-4) Urine Squamous Epithelial Cells Few /LPF Occ /LPF Urine Bacteria 0 /HPF (0-FEW) 0 /HPF (0-FEW) Urine Hyaline Casts Occasional /HPF Urine Mucus Mod /LPF Urine Nitrite Negative (Negative) Phosphorus Level 4.1 mg/dL (2.6-4.7) Magnesium Level 2.1 mg/dL (1.8-2.4) Imaging: Imaging: PATIENT: ZOHRA LEOS ACCOUNT: [id number] : 1965 LOCATION: ER AGE: 56 SEX: F EXAM STATUS: REG ER ORD. PHYSICIAN: CARMEN DAVIS MD REASON: GI bleed PROCEDURE: CT ANGIOGRAPHY ABD AND PELVIS PQRS Compliance Statement: One or more of the following individualized dose reduction techniques were utilized for this examination: 1. Automated exposure control 2. Adjustment of the mA and/or kV according to patient size 3. Use of iterative reconstruction technique Exam performed: CT angiogram abdomen and pelvis without and with contrast HISTORY: GI bleed. DATE OF SERVICE: 09/12/2021. COMPARISON: None available TECHNIQUE: Contiguous helical acquisitions are obtained through the abdomen and pelvis without IV contrast. Patient is then injected with 90 cc of Omnipaque 350 sagittal and coronal MIP images are obtained and reviewed. FINDINGS: Vascular findings: The aorta is normal in caliber without aneurysm. Normal origins of the celiac axis, superior mesenteric, single bilateral renal and inferior mesenteric arteries is seen. Normal aortic bifurcation is seen into bilateral common iliac arteries which bifurcate into internal and external iliac artery. No evidence of aneurysm or dissection seen. No contrast extravasation is identified. The delayed images demonstrate no evidence of delayed hemorrhage. Nonvascular findings: The noncontrast enhanced images demonstrate no abnormal calcification. Postoper ative changes are seen in the stomach. There are surgical sutures in relation to the small bowel in the left mid to lower abdomen. Pelvic phleboliths. The liver, spleen, pancreas appear normal. Gallbladder is distended. Both adrenal glands and bilateral kidneys are normal in size with symmetric excretion of contrast via both kidneys. No hydronephrosis or nephrolithiasis seen. Small and large bowel loops are nondilated and unremarkable. The urinary bladder is partially decompressed. Probable hysterectomy. No adnexal masses seen. There are spondylotic changes involving the lumbar spine with degenerative disc disease at L2-3 level. IMPRESSION: No definite vascular abnormality seen. No evidence of aneurysm, dissection of contrast extravasation seen. No acute intra-abdominal or pelvic process seen. Degenerative disc disease L2/3 level. Electronically signed by: Mariah Lyon MD (09/12/2021 12:13 PM) [facility]ITAL[facility] PE: GEN: NAD HEENT: Atraumatic, PERRLA LUNGS: CTAB HEART: RRR, no murmurs ABD: NABS, S/ND/NT, no masses EXTREMITY: No edema SKIN: No rashes, no jaundice NEURO/PSYCH: A & O 3 A/P: A/P: A 1) Hemotchezia- CTA A/P negative for bleed in ER 2) anemia 3) PMH polyps 4) FMH CRC P 1) PPI gtts 2) PRBCs 3) EGD with concern for ? marginal ulcer bleed 4) If EGD unrevealing, favor prep and colon tomorrow SEA SHELTON MD Sep 13, 2021 10:41
[2021-09-13] MEDS ORDERED: 0.9 % SODIUM CHLORIDE 10 ML DISP.SYRIN. IV PRN (10:45)
[2021-09-13] MEDS: IV NORMAL SALINE 1000ML BAG 1,000 ML IV SCH ×2 (11:15→17:55)
[2021-09-13] MEDS ORDERED: LIDOCAINE 2% PF 5 ML VIAL. ONE (11:40)
[2021-09-13] MEDS ORDERED: PROPOFOL 10 MG/ML (20ML) VIAL. IV ONE ×2 (11:40→12:04)
--- NOTE | 2021-09-13 13:28 | PDOC ---
[employer] PROGRESS NOTE Date of Service DOS: DATE: 09/13/21 TIME: 13:25 Chief Complaint Chief Complaint Acute lower GIB Anemia secondary to acute blood loss Acute cystitis - on ciprofloxacin per PCP Prerenal azotemia History of gastric bypass History of colonic polyps History of dermatofibrosarcoma History of Present Illness History of Present Illness 09/13: Patient seen and evaluated bedside. Hemoglobin this morning 6.8, down from 10.2 on admission. Will give 1 unit PRBC. S/P EGD with findings of small ulcers, but no answer for precipitous drop in hemoglobin. Colon prep tonight; plan is for EGD tomorrow. Patient tells me that she is 5 days into a 10-day course of ciprofloxacin prescribed by her PCP for a severe UTI. Will resume. Discussed with RN. Vitals/I&O Vitals/I&O: Vital Signs Date Time Temp Pulse Resp B/P (MAP) Pulse Ox O2 Delivery O2 Flow Rate FiO2 09/13/21 13:08 99.3 84 17 120/78 99.3 09/13/21 12:08 93 09/13/21 11:58 Room Air I & O 09/12/21 09/12/21 09/13/21 15:00 23:00 07:00 Intake Total 1028 ml 39 ml Output Total 1 ml 1 ml Balance -1 ml 1027 ml 39 ml Physical Exam General: Alert, Oriented X3, Cooperative, No acute distress Heart: Regular rate Lungs: Clear Abdomen: Normal bowel sounds, Soft Extremities: No clubbing, No cyanosis Skin: No rashes Labs Labs: Laboratory Tests Test 09/13/21 04:53 09/13/21 06:10 09/13/21 10:30 Urine Collection Type Unknown Urine Color (Auto) Colorless Urine Turbidity Clear Urine pH (Auto) 5.0 (<5.0-8.0) Urine Specific [place] 1.007 (1.000-1.030) Urine Protein (Auto) Negative mg/dL (Negative) Urine Glucose (Auto)(UA) Negative mg/dL (Negative) Urine Ketones (Auto) Negative mg/dL (Negative) Urine Blood (Auto) Negative (Negative) Urine Nitrite Negative (Negative) Urine Bilirubin (Auto) Negative (Negative) Urine Urobilinogen (Auto) Normal mg/dL (Normal) Urine Leukocyte Esterase (Auto) Negative (Negative) Urine RBC 0 /HPF (0-2) Urine WBC 0 /HPF (0-4) Urine Squamous Epithelial Cells Occ /LPF Urine Bacteria 0 /HPF (0-FEW) White Blood Count 7.1 x10^3/uL (4.0-11.0) Red Blood Count 2.11 x10^6/uL (3.50-5.40) Hemoglobin 6.8 g/dL (12.0-15.5) Hematocrit 20.1 % (36.0-47.0) Mean Corpuscular Volume 95 fL (79-100) Mean Corpuscular Hemoglobin 32 pg (25-35) Mean Corpuscular Hemoglobin Concent 34 g/dL (31-37) Red Cell Distribution Width 12.9 % (11.5-14.5) Platelet Count 300 x10^3/uL (140-400) Neutrophils (%) (Auto) 61 % (31-73) Lymphocytes (%) (Auto) 31 % (24-48) Monocytes (%) (Auto) 6 % (0-9) Eosinophils (%) (Auto) 2 % (0-3) Basophils (%) (Auto) 1 % (0-3) Neutrophils # (Auto) 4.3 x10^3/uL (1.8-7.7) Lymphocytes # (Auto) 2.2 x10^3/uL (1.0-4.8) Monocytes # (Auto) 0.4 x10^3/uL (0.0-1.1) Eosinophils # (Auto) 0.1 x10^3/uL (0.0-0.7) Basophils # (Auto) 0.0 x10^3/uL (0.0-0.2) Sodium Level 143 mmol/L (136-145) Potassium Level 4.1 mmol/L (3.5-5.1) Chloride Level 109 mmol/L (98-107) Carbon Dioxide Level 28 mmol/L (21-32) Anion Gap 6 (6-14) Blood Urea Nitrogen 13 mg/dL (7-20) Creatinine 0.9 mg/dL (0.6-1.0) Estimated GFR (Cockcroft-Gault) 77.8 Glucose Level 86 mg/dL (70-99) Calcium Level 8.1 mg/dL (8.5-10.1) Phosphorus Level 4.1 mg/dL (2.6-4.7) Magnesium Level 2.1 mg/dL (1.8-2.4) SARS-CoV-2 Antigen (Rapid) Negative (NEGATIVE) Assessment and Plan Assessmemt and Plan Problems Medical Problems: (1) Acute blood loss anemia Status: Acute (2) GI bleed Status: Acute Comment Review of Relevant I have reviewed the following items jonas (where applicable) has been applied. Medications: Current Medications Medications (Trade) Dose Ordered Sig/Ratna Route PRN Reason Start Time Stop Time Status Last Admin Dose Admin Ondansetron HCl (Zofran) 4 mg PRN Q6HRS PRN IVP NAUSEA/VOMITING, 1st CHOICE 09/12/21 15:15 09/13/21 09:52 Sodium Chloride 1,000 ml @ 100 mls/hr Q10H IV 09/12/21 15:15 09/12/21 23:14 Justifications for Admission Other Justification RAYMUNDO JAMISON MD Sep 13, 2021 13:28
[2021-09-13 15:50] LABS: HEMATOCRIT 23.8 % (36.0-47.0); HEMOGLOBIN 7.9 g/dL (12.0-15.5); RED BLOOD COUNT 2.55 x10^6/uL (3.50-5.40); RED CELL DISTRIBUTION WIDTH 14.5 % (11.5-14.5); WHITE BLOOD COUNT 7.6 x10^3/uL (4.0-11.0)
[2021-09-13] MEDS ORDERED: PEG 3350/NA SULF,BICARB,CL/KCL 4,000 ML SOLUTION. PO ONE (16:00)
[2021-09-13] MEDS: ACETAMINOPHEN 325 MG TABLET. PO PRN (19:57)
[2021-09-14] VITALS (11 sets, daily range): BP systolic 94–146; BP diastolic 48–74
[2021-09-14 08:50] LABS: BASO % 1 % (0-3); EOS # 0.1 x10^3/uL (0.0-0.7); EOS % 2 % (0-3); HEMATOCRIT 25.3 % (36.0-47.0); HEMOGLOBIN 8.3 g/dL (12.0-15.5); LYMPH % 28 % (24-48); MEAN CORPUSCULAR HEMOGLOBIN 31 pg (25-35); MEAN CORPUSCULAR HGB CONC 33 g/dL (31-37); MEAN CORPUSCULAR VOLUME 94 fL (79-100); MONO # 0.3 x10^3/uL (0.0-1.1); MONO % 5 % (0-9); NEUT # 4.6 x10^3/uL (1.8-7.7); NEUT % 65 % (31-73); RED BLOOD COUNT 2.68 x10^6/uL (3.50-5.40); RED CELL DISTRIBUTION WIDTH 14.4 % (11.5-14.5)
[2021-09-14 08:56] LABS: PLATELET COUNT 286 x10^3/uL (140-400)
[2021-09-14 08:59] LABS: CALCIUM 8.6 mg/dL (8.5-10.1); CREATININE 0.8 mg/dL (0.6-1.0); GFR 89.1; MAGNESIUM 2.1 mg/dL (1.8-2.4); POTASSIUM 4.2 mmol/L (3.5-5.1)
[2021-09-14] MEDS: IV NORMAL SALINE 1000ML BAG 1,000 ML IV SCH ×2 (12:20→22:49)
[2021-09-14] MEDS: PANTOPRAZOLE SODIUM IV DRIP 80 MG in IV NORMAL SALINE 100ML 100 ML IV SCH (13:35)
[2021-09-14] MEDS ORDERED: IV RINGERS,LACTATED 1000ML 1,000 ML IV SCH (14:00)
[2021-09-14] MEDS ORDERED: PROPOFOL 10 MG/ML (20ML) VIAL. IV ONE (15:33)
--- NOTE | 2021-09-14 15:40 | PDOC ---
[employer] PROGRESS NOTE Date of Service DOS: DATE: 09/14/21 TIME: 15:39 Chief Complaint Chief Complaint Acute lower GIB Anemia secondary to acute blood loss Acute cystitis - on ciprofloxacin per PCP Prerenal azotemia History of gastric bypass History of colonic polyps History of dermatofibrosarcoma History of Present Illness History of Present Illness 09/13: Patient seen and evaluated bedside. Hemoglobin this morning 6.8, down from 10.2 on admission. Will give 1 unit PRBC. S/P EGD with findings of small ulcers, but no answer for precipitous drop in hemoglobin. Colon prep tonight; plan is for EGD tomorrow. Patient tells me that she is 5 days into a 10-day course of ciprofloxacin prescribed by her PCP for a severe UTI. Will resume. Discussed with RN. 09/14: Afebrile. No complaints today, denies chest pain or shortness of breath. Hemoglobin 8.3 today; will add oral ferrous sulfate. She will have a colonoscopy today. She will resume her home ciprofloxacin. Barring any significantly abnormal findings on colonoscopy, she may discharge tomorrow. Vitals/I&O Vitals/I&O: Vital Signs Date Time Temp Pulse Resp B/P (MAP) Pulse Ox O2 Delivery O2 Flow Rate FiO2 09/14/21 14:00 97.6 72 20 96 97.6 09/14/21 10:49 116/63 (80) Room Air I & O 09/13/21 09/13/21 09/14/21 15:00 23:00 07:00 Intake Total 882 ml 1100 ml 1000 ml Balance 882 ml 1100 ml 1000 ml Physical Exam General: Alert, Oriented X3, Cooperative, No acute distress Heart: Regular rate Lungs: Clear Abdomen: Normal bowel sounds, Soft Extremities: No clubbing, No cyanosis Skin: No rashes Labs Labs: Laboratory Tests Test 09/13/21 23:45 09/14/21 08:08 Hemoglobin 7.3 g/dL (12.0-15.5) 8.3 g/dL (12.0-15.5) White Blood Count 7.0 x10^3/uL (4.0-11.0) Red Blood Count 2.68 x10^6/uL (3.50-5.40) Hematocrit 25.3 % (36.0-47.0) Mean Corpuscular Volume 94 fL (79-100) Mean Corpuscular Hemoglobin 31 pg (25-35) Mean Corpuscular Hemoglobin Concent 33 g/dL (31-37) Red Cell Distribution Width 14.4 % (11.5-14.5) Platelet Count 286 x10^3/uL (140-400) Neutrophils (%) (Auto) 65 % (31-73) Lymphocytes (%) (Auto) 28 % (24-48) Monocytes (%) (Auto) 5 % (0-9) Eosinophils (%) (Auto) 2 % (0-3) Basophils (%) (Auto) 1 % (0-3) Neutrophils # (Auto) 4.6 x10^3/uL (1.8-7.7) Lymphocytes # (Auto) 2.0 x10^3/uL (1.0-4.8) Monocytes # (Auto) 0.3 x10^3/uL (0.0-1.1) Eosinophils # (Auto) 0.1 x10^3/uL (0.0-0.7) Basophils # (Auto) 0.0 x10^3/uL (0.0-0.2) Sodium Level 143 mmol/L (136-145) Potassium Level 4.2 mmol/L (3.5-5.1) Chloride Level 108 mmol/L (98-107) Carbon Dioxide Level 26 mmol/L (21-32) Anion Gap 9 (6-14) Blood Urea Nitrogen 6 mg/dL (7-20) Creatinine 0.8 mg/dL (0.6-1.0) Estimated GFR (Cockcroft-Gault) 89.1 Glucose Level 81 mg/dL (70-99) Calcium Level 8.6 mg/dL (8.5-10.1) Magnesium Level 2.1 mg/dL (1.8-2.4) Assessment and Plan Assessmemt and Plan Problems Medical Problems: (1) Acute blood loss anemia Status: Acute (2) GI bleed Status: Acute Comment Review of Relevant I have reviewed the following items jonas (where applicable) has been applied. Medications: Current Medications Medications (Trade) Dose Ordered Sig/Ratna Route PRN Reason Start Time Stop Time Status Last Admin Dose Admin Sodium Cl/Sod Bicarb/Potass Cl/ PEG (Golytely) 4,000 ml 1X ONCE PO 09/13/21 16:00 09/13/21 16:01 DC 09/13/21 16:53 Ringer's Solution 1,000 ml @ 75 mls/hr [id number] IV 09/14/21 14:00 09/14/21 13:58 Justifications for Admission Other Justification RAYMUNDO JAMISON MD Sep 14, 2021 15:40
--- NOTE | 2021-09-14 16:13 | PDOC4 ---
PROCEDURE Procedure Colonoscopy Indication: GI bleeding, site uncertain. Meds: per anesthesia Findings: ROSS normal. --'Scope advanced to cecum. Prep adequate. Mucosa normal. Tortuous and angulated, possibly from prior surgery. No diverticular disease, polyps, etc. seen. IH's on retroflex. Flip. well. IMP: IH's, otherwise normal exam. REC: PO PPI BID. Sucralfate qid. Repeat EGD 6-8 weeks re; healing. OK to advance diet. LEISA XIE MD Sep 14, 2021 16:13
[2021-09-14] MEDS: SUCRALFATE 1 GM TABLET. PO SCH ×2 (17:01→20:42)
[2021-09-14] MEDS: PANTOPRAZOLE 40 MG TABLET.DR. PO SCH (17:01)
[2021-09-14] MEDS: CIPROFLOXACIN HCL 250 MG TABLET. PO SCH ×2 (17:01→20:42)
[2021-09-14] MEDS: ONDANSETRON PF 4 MG/2 ML VIAL. IVP PRN (18:32)
[2021-09-15 03:00] VITALS: BP 100/55
[2021-09-15 06:14] LABS: BASO % 0 % (0-3); EOS # 0.1 x10^3/uL (0.0-0.7); EOS % 2 % (0-3); HEMATOCRIT 21.9 % (36.0-47.0); HEMOGLOBIN 7.4 g/dL (12.0-15.5); LYMPH # 1.8 x10^3/uL (1.0-4.8); LYMPH % 25 % (24-48); MEAN CORPUSCULAR HEMOGLOBIN 31 pg (25-35); MEAN CORPUSCULAR HGB CONC 34 g/dL (31-37); MEAN CORPUSCULAR VOLUME 93 fL (79-100); MONO # 0.4 x10^3/uL (0.0-1.1); MONO % 5 % (0-9); NEUT % 69 % (31-73); PLATELET COUNT 300 x10^3/uL (140-400); RED BLOOD COUNT 2.35 x10^6/uL (3.50-5.40); RED CELL DISTRIBUTION WIDTH 14.5 % (11.5-14.5); WHITE BLOOD COUNT 7.3 x10^3/uL (4.0-11.0)
[2021-09-15 06:23] LABS: CALCIUM 8.1 mg/dL (8.5-10.1); CREATININE 0.9 mg/dL (0.6-1.0); GFR 77.8; MAGNESIUM 1.9 mg/dL (1.8-2.4); POTASSIUM 3.7 mmol/L (3.5-5.1)
[2021-09-15 07:00] VITALS: BP 110/66
[2021-09-15] MEDS: IV NORMAL SALINE 1000ML BAG 1,000 ML IV SCH ×3 (08:52→20:45)
[2021-09-15] MEDS: FERROUS SULFATE 325 MG TABLET. PO SCH (08:53)
[2021-09-15] MEDS: PANTOPRAZOLE 40 MG TABLET.DR. PO SCH ×2 (08:53→18:35)
[2021-09-15] MEDS: SUCRALFATE 1 GM TABLET. PO SCH ×4 (08:53→20:40)
[2021-09-15] MEDS: ACETAMINOPHEN 325 MG TABLET. PO PRN (08:57)
--- NOTE | 2021-09-15 09:40 | PDOC ---
Date of Service: DATE: 09/15/21 TIME: 09:36 Subjective: Subjective: Some nausea since colonoscopy. Tolerating diet. Passed small amount of yellow stool. No bleeding. Mild headache. Some concern w/ ongoing anemia because she is traveling to [facility] on Tuesday - wants to know if she should adjust travel plans. Objective: Vital Signs: Vital Signs Date Time Temp Pulse Resp B/P (MAP) Pulse Ox O2 Delivery O2 Flow Rate FiO2 09/15/21 08:00 Room Air 09/15/21 07:00 98.4 56 18 110/66 (81) 99 98.4 09/14/21 16:10 3.0 Labs: Laboratory Tests Test 09/15/21 05:35 White Blood Count 7.3 x10^3/uL Red Blood Count 2.35 x10^6/uL Hemoglobin 7.4 g/dL Hematocrit 21.9 % Mean Corpuscular Volume 93 fL Mean Corpuscular Hemoglobin 31 pg Mean Corpuscular Hemoglobin Concent 34 g/dL Red Cell Distribution Width 14.5 % Platelet Count 300 x10^3/uL Neutrophils (%) (Auto) 69 % Lymphocytes (%) (Auto) 25 % Monocytes (%) (Auto) 5 % Eosinophils (%) (Auto) 2 % Basophils (%) (Auto) 0 % Neutrophils # (Auto) 5.0 x10^3/uL Lymphocytes # (Auto) 1.8 x10^3/uL Monocytes # (Auto) 0.4 x10^3/uL Eosinophils # (Auto) 0.1 x10^3/uL Basophils # (Auto) 0.0 x10^3/uL Sodium Level 143 mmol/L Potassium Level 3.7 mmol/L Chloride Level 109 mmol/L Carbon Dioxide Level 25 mmol/L Anion Gap 9 Blood Urea Nitrogen 5 mg/dL Creatinine 0.9 mg/dL Estimated GFR (Cockcroft-Gault) 77.8 Glucose Level 104 mg/dL Calcium Level 8.1 mg/dL Magnesium Level 1.9 mg/dL Imaging: EGD 09/13 Findings E: Normal GE junction G- RYGB with Marginal ulcer x 2. One with pigmented spot. Mo active bleeding. Edges biopsies J: Normal Plan: 1) Await path 2) Colon prep and colonoscopy tomorrow Colonoscopy 09/14 Findings: ROSS normal. --'Scope advanced to cecum. Prep adequate. Mucosa normal. Tortuous and angulated, possibly from prior surgery. No diverticular disease, polyps, etc. seen. IH's on retroflex. Flip. well. IMP: IH's, otherwise normal exam. REC: PO PPI BID. Sucralfate qid. Repeat EGD 6-8 weeks re; healing. OK to advance diet. PE: GEN: NAD LUNGS: CTAB HEART: RRR ABD: S/ND/NT NEURO/PSYCH: A & O 3 A/P: GI bleeding - resolving Anemia - drift in Hgb overnight S/p [place]-en-Y w/ marginal ulcers - no active bleeding -- Continue PPI and Carafate, will review w/ Dr. Carr. Justicifation of Admission Dx: Justifications for Admission: Justification of Admission Dx: Yes CHAN SOUZA Sep 15, 2021 09:40
[2021-09-15 11:00] VITALS: BP 110/71
--- NOTE | 2021-09-15 14:13 | PATHOLOGY ---
[facility] Accession Number: [id number] . 01 Material submitted: . gastrointestinal site - MARGINAL ULCER BX AT GASTROJEJUNAL ANASTOMOSIS . 01 Clinical history: . GI BLEED, HX TOOTIE-EN-Y GASTROJEJUNOSTOMY . 02 Diagnosis: Small intestine mucosa, marginal ulcer biopsy at gastrojejunal anastomosis: - Mild acute and chronic inflammation. (JPM:cheryl; 09/15/2021) MBR 09/15/2021 1207 Local . 02 Comment: Sections of the marginal ulcer biopsy at gastrojejunal anastomosis reveals a segment of small intestine mucosa showing congestion and mild acute and chronic inflammation. A properly controlled immunoperoxidase stain for Helicobacter is negative for Helicobacter organisms. There is no evidence of malignancy. (JPM:cheryl; 09/15/2021) . . Special stain performed: Immunoperoxidase stain for Helicobacter on A1 . 02 Electronically signed: . Rocco Ma MD, Pathologist NPI- [id number] . 01 Gross description: . The specimen is received in formalin, labeled "Melissa [place], marginal ulcer biopsy". The source is additionally labeled on the requisition as "marginal ulcer biopsy at gastrojejunal anastomosis". Received is a segment of pale cleaning tissue measuring 0.3 cm in maximum dimensions. The specimen is submitted entirely in cassette A1. (CAA; 09/14/2021) QAC/QAC 09/14/2021 1528 Local . 02 Pathologist provided ICD-10: K52.9, K92.2 . 02 CPT . 309883, [id number] Specimen Comment: A courtesy copy of this report has been sent to [phone], [phone] Specimen Comment: [id number] Specimen Comment: Report sent to / DR SHELTON Performed at: [address] [facility] [address], [place], [place] [id number] MD Bayron Blackwell MD Phone: [phone] Performed at: 02 [facility] [address] [place], [place] [id number] MD Rocco Ma MD Phone: [phone]
--- NOTE | 2021-09-15 14:18 | PDOC ---
[facility] PROGRESS NOTE Date of Service DOS: DATE: 09/15/21 TIME: 14:17 Chief Complaint Chief Complaint Acute lower GIB status post colonoscopy 09/14/2021. No overt bleeding seen. Plan for EGD in 6 to 8 weeks Anemia secondary to acute blood loss Acute cystitis - on ciprofloxacin per PCP Prerenal azotemia History of gastric bypass History of colonic polyps History of dermatofibrosarcoma History of Present Illness History of Present Illness 09/13: Patient seen and evaluated bedside. Hemoglobin this morning 6.8, down from 10.2 on admission. Will give 1 unit PRBC. S/P EGD with findings of small ulcers, but no answer for precipitous drop in hemoglobin. Colon prep tonight; plan is for EGD tomorrow. Patient tells me that she is 5 days into a 10-day course of ciprofloxacin prescribed by her PCP for a severe UTI. Will resume. Discussed with RN. 09/14: Afebrile. No complaints today, denies chest pain or shortness of breath. Hemoglobin 8.3 today; will add oral ferrous sulfate. She will have a colonoscopy today. She will resume her home ciprofloxacin. Barring any significantly abnormal findings on colonoscopy, she may discharge tomorrow. 09/15/2021 No acute events overnight. Patient seen examined bedside. Status post colonoscopy yesterday and hemoglobin is 7.4. We will continue to trend hemoglobin. Patient denies any further bloody bowel movements. Patient's chart, labs, images were reviewed and discussed with RN Vitals/I&O Vitals/I&O: Vital Signs Date Time Temp Pulse Resp B/P (MAP) Pulse Ox O2 Delivery O2 Flow Rate FiO2 09/15/21 11:00 98.7 57 18 110/71 (84) 94 Room Air 98.7 09/14/21 16:10 3.0 I & O 09/14/21 09/14/21 09/15/21 15:00 23:00 07:00 Intake Total 0 ml 5092 ml 360 ml Balance 0 ml 5092 ml 360 ml Physical Exam General: Alert, Oriented X3, Cooperative, No acute distress Heart: Regular rate Lungs: Clear Abdomen: Normal bowel sounds, Soft Extremities: No clubbing, No cyanosis Skin: No rashes Labs Labs: Laboratory Tests Test 09/15/21 05:35 White Blood Count 7.3 x10^3/uL (4.0-11.0) Red Blood Count 2.35 x10^6/uL (3.50-5.40) Hemoglobin 7.4 g/dL (12.0-15.5) Hematocrit 21.9 % (36.0-47.0) Mean Corpuscular Volume 93 fL (79-100) Mean Corpuscular Hemoglobin 31 pg (25-35) Mean Corpuscular Hemoglobin Concent 34 g/dL (31-37) Red Cell Distribution Width 14.5 % (11.5-14.5) Platelet Count 300 x10^3/uL (140-400) Neutrophils (%) (Auto) 69 % (31-73) Lymphocytes (%) (Auto) 25 % (24-48) Monocytes (%) (Auto) 5 % (0-9) Eosinophils (%) (Auto) 2 % (0-3) Basophils (%) (Auto) 0 % (0-3) Neutrophils # (Auto) 5.0 x10^3/uL (1.8-7.7) Lymphocytes # (Auto) 1.8 x10^3/uL (1.0-4.8) Monocytes # (Auto) 0.4 x10^3/uL (0.0-1.1) Eosinophils # (Auto) 0.1 x10^3/uL (0.0-0.7) Basophils # (Auto) 0.0 x10^3/uL (0.0-0.2) Sodium Level 143 mmol/L (136-145) Potassium Level 3.7 mmol/L (3.5-5.1) Chloride Level 109 mmol/L (98-107) Carbon Dioxide Level 25 mmol/L (21-32) Anion Gap 9 (6-14) Blood Urea Nitrogen 5 mg/dL (7-20) Creatinine 0.9 mg/dL (0.6-1.0) Estimated GFR (Cockcroft-Gault) 77.8 Glucose Level 104 mg/dL (70-99) Calcium Level 8.1 mg/dL (8.5-10.1) Magnesium Level 1.9 mg/dL (1.8-2.4) Assessment and Plan Assessmemt and Plan Problems Medical Problems: (1) Acute blood loss anemia Status: Acute (2) GI bleed Status: Acute Comment Review of Relevant I have reviewed the following items jonas (where applicable) has been applied. Medications: Current Medications Medications (Trade) Dose Ordered Sig/Ratna Route PRN Reason Start Time Stop Time Status Last Admin Dose Admin Ferrous Sulfate (Feosol) 325 mg DAILYWBKFT PO 09/15/21 08:00 09/15/21 08:53 Pantoprazole Sodium (Protonix) 40 mg BID AC PO 09/14/21 17:30 09/15/21 08:53 Sucralfate (Carafate) 1 gm QIDACHS PO 09/14/21 16:30 09/15/21 12:00 Non-Formulary Medication (CIPROFLOXACIN 500mg TABLET) 1 ea BID PO 09/15/21 09:00 09/17/21 09:01 09/15/21 09:31 Justifications for Admission Other Justification SANJEEV ROMERO MD Sep 15, 2021 14:18
[2021-09-15 14:51] VITALS: BP 99/68
[2021-09-15 19:00] VITALS: BP 94/58
[2021-09-15 23:00] VITALS: BP 115/78
[2021-09-16 03:00] VITALS: BP 101/63
[2021-09-16 07:12] LABS: HEMATOCRIT 24.5 % (36.0-47.0); HEMOGLOBIN 8.4 g/dL (12.0-15.5)
[2021-09-16 07:51] VITALS: BP 124/80
[2021-09-16] MEDS ORDERED: PANT40TA77 PO (08:15)
[2021-09-16] MEDS ORDERED: FERR325T72 PO (08:15)
[2021-09-16] MEDS: FERROUS SULFATE 325 MG TABLET. PO SCH (08:18)
[2021-09-16] MEDS: SUCRALFATE 1 GM TABLET. PO SCH ×2 (08:18→11:38)
[2021-09-16] MEDS: PANTOPRAZOLE 40 MG TABLET.DR. PO SCH (08:18)
--- NOTE | 2021-09-16 08:30 | DISCH ---
DISCHARGE INSTRUCTIONS Condition on Discharge Condition on Discharge: Stable Activity After Discharge Activity Instructions for Disc: Activity as tolerated Exercise Instruction after Dis: Walk 30 min, 5 x per week Driving Instructions after Dis: Do not drive today Weight Bearing Status after Di: As tolerated Diet after Discharge Diet after Discharge: Cardiac Follow-Up Follow up with: PCP within 2 weeks of discharge Follow Up With: Gastroenterology as scheduled or as needed, EGD in 6 to 8 weeks SANJEEV FELIPE MD Sep 16, 2021 08:30
[2021-09-16] MEDS: IV NORMAL SALINE 1000ML BAG 1,000 ML IV SCH (09:15)
--- NOTE | 2021-09-16 10:10 | PDOC ---
Date of Service: DATE: 09/16/21 TIME: 10:09 Subjective: Subjective: Feeling better, doing some work remotely. Objective: Objective: D/w nurse - discharging today. Vital Signs: Vital Signs Date Time Temp Pulse Resp B/P (MAP) Pulse Ox O2 Delivery O2 Flow Rate FiO2 09/16/21 07:51 97.7 52 18 124/80 (95) 97 Room Air 97.7 Labs: Laboratory Tests Test 09/16/21 04:40 Hemoglobin 8.4 g/dL Hematocrit 24.5 % Mean Corpuscular Hemoglobin Concent 34 g/dL PE: GEN: NAD LUNGS: CTAB HEART: RRR ABD: NABS, S/ND/NT NEURO/PSYCH: A & O 3 A/P: GI bleeding - resolved Anemia - Hgb improved S/p [place]-en-Y w/ marginal ulcers - no active bleeding -- Dc per primary on PPI, carafate, and iron. F/u for EGD in 6-8 weeks - our office will contact to schedule. Justicifation of Admission Dx: Justifications for Admission: Justification of Admission Dx: Yes CHAN SOUZA Sep 16, 2021 10:10
[2021-09-16] MEDS ORDERED: SUCR1TAB35 PO (11:09)
[2021-09-16 11:41] VITALS: BP 120/82
--- NOTE | 2021-09-16 12:36 | NUR ---
Discharge Note: ZOHRA LEOS Discharge instructions and discharge home medications reviewed with Patient and a copy given. All questions have been answered and understanding verbalized. The following instructions and handouts were given: worsening symptoms, education on anemia and iron rich foods, medications and follow up appointments. Discontinued lines and drains: patient IV DC'd from left AC, patient tolerated the procedure well, skin in tact. Patient discharged to home with self care accompanied by .
--- NOTE | 2021-09-21 11:00 | PDOC3 ---
[facility]-Discharge Summary Date of Admission: Date of Admission: Sep 12, 2021 Date of Discharge: Date of Discharge: Sep 16, 2021 Discharge Diagnosis: Discharge Diagnosis: Acute lower GIB status post colonoscopy 09/14/2021. No overt bleeding seen. Plan for EGD in 6 to 8 weeks Anemia secondary to acute blood loss Acute cystitis - on ciprofloxacin per PCP Prerenal azotemia History of gastric bypass History of colonic polyps History of dermatofibrosarcoma Consults: Consults: per GI: Dc per primary on PPI, carafate, and iron. F/u for EGD in 6-8 weeks - our office will contact to schedule. Hospital Course: Hospital Course: 56-year-old female who presents with 3 large bloody bowel movements this morning. She does have a history of hemorrhoids. She was seen last week at an urgent care where her hemoglobin was 14 at the time. She was given antibiotics for what sounds like a UTI. She also was evaluated by her PCP in which her D- dimer was elevated and she underwent a CT angio of the chest which was negative for pulmonary embolus. She does endorse some suprapubic pain and some shortness of breath. Positive for fatigue as well. Denies any chest pain, fevers, nausea or vomiting, dysuria or syncope. No palpitations. 09/13: Patient seen and evaluated bedside. Hemoglobin this morning 6.8, down from 10.2 on admission. Will give 1 unit PRBC. S/P EGD with findings of small ulcers, but no answer for precipitous drop in hemoglobin. Colon prep tonight; plan is for EGD tomorrow. Patient tells me that she is 5 days into a 10-day course of ciprofloxacin prescribed by her PCP for a severe UTI. Will resume. Discussed with RN. 09/14: Afebrile. No complaints today, denies chest pain or shortness of breath. Hemoglobin 8.3 today; will add oral ferrous sulfate. She will have a colonoscopy today. She will resume her home ciprofloxacin. Barring any significantly abnormal findings on colonoscopy, she may discharge tomorrow. 09/15/2021 No acute events overnight. Patient seen examined bedside. Status post colonoscopy yesterday and hemoglobin is 7.4. We will continue to trend hemoglobin. Patient denies any further bloody bowel movements. Patient's chart, labs, images were reviewed and discussed with RN Hb stable by time of discharge. Rest of hospital course was uneventful. Disposition: Disposition/Orders: D/C to Home Activity: Activity: Resume previous activity Diet: Diet: Soft Medications: Home Meds Active Scripts Sucralfate (CARAFATE) 1 Gm Tablet, 1 GM PO QIDACHS for prevent stomach ulcers for 30 Days, #120 TAB 2 Refills Prov:SANJEEV FELIPE MD 09/16/21 Pantoprazole Sodium (PANTOPRAZOLE SODIUM ) 40 Mg Tablet.dr, 40 MG PO BID AC for prevent GI bleed for 30 Days, #60 TAB.SR 2 Refills Prov:SANJEEV FELIPE MD 09/16/21 Ferrous Sulfate (FEOSOL) 325 Mg Tablet, 325 MG PO QODAY for anemia for 30 Days, #30 TAB 2 Refills Prov:SANJEEV FELIPE MD 09/16/21 Reported Medications Calcium Citrate/Vitamin D3 (CALCIUM CITRATE WITH D TABLET) 1 Each Tablet, 1 EACH PO TID for , TAB 09/12/21 Multivit-Min/Iron/Folic Acid/K (Bariatric Mv-Iron 45 mg Cap) 1 Each Capsule, 2 EA PO DAILY for , CAP 09/12/21 Discontinued Reported Medications Ciprofloxacin Hcl (CIPROFLOXACIN HCL) 250 Mg Tablet, 1 TAB PO BID for infection, #10 TAB 09/12/21 Discontinued Scripts Hydrocodone/Apap 5-325 (NORCO 5-325 TABLET) 1 Each Tablet, 1 EACH PO Q4HRS PRN, #14 Prov:QUIQUE HINKLE 06/05/13 Scheduled Calcium Citrate/Vitamin D3 (Calcium Citrate With D Tablet), 1 EACH PO TID, (Rep orted) Ferrous Sulfate (Feosol), 325 MG PO QODAY Multivit-Min/Iron/Folic Acid/K (Bariatric Mv-Iron 45 mg Cap), 2 EA PO DAILY, (Reported) Pantoprazole Sodium (Pantoprazole Sodium ), 40 MG PO BID AC Sucralfate (Carafate), 1 GM PO QIDACHS Discontinued Medications Ciprofloxacin Hcl (Ciprofloxacin Hcl), 1 TAB PO BID, (Reported) Hydrocodone/Apap 5-325 ([place] 5-325 Tablet), 1 EACH PO Q4HRS PRN Total Time: Total Time: Total time spent was 34 minutes in preparing scripts and discharge planning with SW and RN. Patient seen and examined on day of Discharge. Justicifation of Admission Dx: Justifications for Admission: Justification of Admission Dx: Yes SANJEEV FELIPE MD Sep 21, 2021 11:00
== END 2021-09-16 12:00 | disposition home or self-care (01) | DRG 378 ==
LOC: ER 10:04 → 2 NORTH 13:34
PROVIDERS: ADMIT Internal Medicine; ATTEND Internal Medicine
PROC: 0DB68ZX Excision of Stomach, Via Natural or Artificial Opening Endoscopic, Diagnostic (ICD-10-PCS; 2021-09-14)
PROC: 0DJD8ZZ Inspection of Lower Intestinal Tract, Via Natural or Artificial Opening Endoscopic (ICD-10-PCS; principal; 2021-09-14 15:00)
DX: K92.2 Gastrointestinal hemorrhage, unspecified (principal); D62 Acute posthemorrhagic anemia; N30.00 Acute cystitis without hematuria; I10 Essential (primary) hypertension; I87.8 Other specified disorders of veins; M51.36 Other intervertebral disc degeneration, lumbar region; Z80.0 Family history of malignant neoplasm of digestive organs; Z87.11 Personal history of peptic ulcer disease; Z87.19 Personal history of other diseases of the digestive system; Z90.710 Acquired absence of both cervix and uterus; Z98.84 Bariatric surgery status
CPT/HCPCS: 36415; 36430; 43239; 45378; 74174; 80048; 80053; 81001; 82607; 83605; 83735; 84100; 85014; 85018; 85025; 85027; 85610; 85730; 86850; 86900; 86901; 86920; 87426; 96360; C9113; J0780; J2405; J2704; J7030; J7120; P9016; Q9967; 99285-25; G0378